=== PATIENT | male | born 1990 | race Caucasian/White ===

== ENCOUNTER 2017-06-19 12:28 | Emergency (ER) | payer OTHER ==
[~2017-06-19] VITALS: Ht 195.6 cm; Wt 94.9 kg
[2017-06-19] MEDS ORDERED: MOTRIN600 MG PO (14:22)
[2017-06-19 14:33] VITALS: BP 116/87
== END 2017-06-19 14:35 | disposition home or self-care (01) ==
LOC: EME 12:28
DX: M25.512 Pain in left shoulder (principal); M54.6 Pain in thoracic spine; V03.90XA Pedestrian on foot injured in collision with car, pick-up truck or van, unspecified whether traffic or nontraffic accident, initial encounter; Y92.410 Unspecified street and highway as the place of occurrence of the external cause; F17.200 Nicotine dependence, unspecified, uncomplicated
CPT/HCPCS: 73030; 99281; 99284